=== PATIENT | male | born 1975 | race African-American/Black ===

== ENCOUNTER 2017-03-14 14:29 | Emergency (ER) | payer BC | END 2017-03-14 16:43 | disposition home or self-care (01) | LOC: ER 14:29 | DX: S39.012A Strain of muscle, fascia and tendon of lower back, initial encounter (principal); F17.200 Nicotine dependence, unspecified, uncomplicated; Z91.013 Allergy to seafood; X58.XXXA Exposure to other specified factors, initial encounter; Y93.89 Activity, other specified; Y99.0 Civilian activity done for income or pay | CPT/HCPCS: 72100; 99283 ==